=== PATIENT | female | born 1990 | race Hispanic/Latino ===

== ENCOUNTER 2018-03-23 12:31 | Emergency (ER) | payer OTHER ==
[~2018-03-23] VITALS: Ht 154.9 cm; Wt 73.0 kg
[~2018-03-23 12:31] MED LIST: ANTIVERT 25 MG25 M1 PO; LEVSIN-SL0.125 MG SL; LEVSIN0.125 M1 PO; MECLIZINE HCL25 MG PO; MOTRIN800 MG PO; TRAMADOL50 MG PO; VANCOCIN HCL250 MG PO; ZOFRAN ODT4 M1 SL; ZOFRAN4 M1 PO
--- NOTE | 2018-03-23 12:54 | ED GENERAL ADULT ---
History of Present Illness General Chief Complaint: Abdominal Pain/Flank Pain Stated Complaint: RT SIDED ABD PAIN Source: patient Exam Limitations: no limitations Vital Signs & Intake/Output Vital Signs & Intake/Output Vital Signs Date Time Temp Pulse Resp B/P B/P Pulse O2 O2 Flow FiO2 Mean Ox Delivery Rate 03/23 1623 80 16 139/80 98 Room Air Room Air 03/23 1430 89 18 169/91 98 Room Air 03/23 1320 97 Room Air 03/23 1233 96.2 106 20 142/82 96 Room Air Allergies Coded Allergies: No Known Allergies (03/23/18) Reconcile Medications Dextroamphetamine/Amphetamine (Dextroamp-Amphetamin 30 MG Tab) 30 MG TABLET 1 TAB PO BID MENTAL HEALTH (Reported) Triage Note: PT TO ED C/O RLQ PAIN X 2 HOURS. VOMITED X 3. DENIES DIRRHEA. ALSO C/O LOWER ABD PRESSURE. Triage Nurses Notes Reviewed? yes : No Patient currently breastfeeds: No HPI: This is a 28-year-old female with history of C. difficile colitis, palpitations, status post tubal ligation presenting to the emergency department with abrupt onset right lower quadrant abdominal pain which is similar in quality to previous pain which is been attributed to ovarian cysts. Patient states that the pain started abruptly when she woke up this morning, was associated with an episode of diaphoresis and nausea with vomiting. She had no fever or chills. Upon arrival to the emergency department, she states the pain is more localized to the left lower quadrant. She also feels nauseated. She denies any diarrhea. See sexually active with one male partner, does not use contraception secondary to having undergone tubal ligation. States that her last menstrual period was during last week of February and was unremarkable. She has had no vaginal bleeding or discharge since that time. Denies any dyspareunia. She denies any toxic habits apart from mild social alcohol use. She has had no recent travel, trauma, illness. She has no history of abdominal surgery. Past History Travel History Traveled to [place] past 21 day No Medical History Any Pertinent Medical History? see below for history Cardiovascular: PALPITATIONS Gastrointestinal: colitis (c.diff) Surgical History Surgical History: non-contributory Psychosocial History What is your primary language Korean Tobacco Use: Never used ETOH Use: denies use Illicit Drug Use: denies illicit drug use Family History Hx Contributory? No Review of Systems Review of Systems Constitutional: Reports: diaphoresis. Denies: chills, fever, malaise, weakness. EENTM: Reports: no symptoms. Respiratory: Reports: no symptoms. Cardiovascular: Reports: no symptoms. GI: Reports: see HPI. Genitourinary: Reports: no symptoms. Denies: discharge, dysuria, frequency, hematuria, hesitation, nocturia, pain, urgency. Musculoskeletal: Reports: no symptoms. Skin: Reports: no symptoms. Neurological/Psychological: Reports: no symptoms. Hematologic/Endocrine: Reports: no symptoms. Immunologic/Allergic: Reports: no symptoms. Physical Exam Physical Exam General Appearance: well developed/nourished, no apparent distress, awake, comfortable Comments: Well-appearing young woman, no acute distress. Abdomen soft, nondistended with normal bowel sounds. Mild tenderness palpation to left lower quadrant. No right lower quadrant tenderness. Negative Rovsing, obturator sign. Negative Lee sign. No tenderness to McBurney's point. Cardiopulmonary exam within normal limits. Neurologically intact and normal. Intact pulse, movement and sensation all extremities. No skin changes. Patient refuses pelvic/SANDB[employer] PAINT [employer]ER exam, verbalizes the risks and benefits of refusing. Core Measures ACS in differential dx? No CVA/TIA Diagnosis: No Sepsis Present: No Sepsis Focused Exam Completed? No Progress Differential Diagnoses I considered the following diagnoses in my evaluation of the patient: Ovarian cyst, ovarian torsion, lower suspicion for appendicitis in this patient. Enteritis, gastritis, colitis. Low suspicion for acute vascular pathology at this time. Doubt metabolic transient. Plan of Care: Orders Procedure Date/time Status Add-on Test (ER Only) 03/23 1407 Active HUMAN BETA HCG SCREEN 03/23 1255 Complete URINE 03/23 1233 Complete URINALYSIS 03/23 1233 Complete LIPASE 03/23 1233 Complete C-REACTIVE PROTEIN 03/23 1233 Complete COMPREHENSIVE METABOLIC PANEL 03/23 1233 Complete CBC WITHOUT DIFFERENTIAL 03/23 1233 Complete Laboratory Tests 03/23/18 1448: Urine Color YEL, Urine Clarity CLEAR, Urine pH 7.0, Ur Specific [place] 1.020, Urine Protein NEG, Urine Ketones NEG, Urine Nitrite NEG, Urine Bilirubin NEG, Urine Urobilinogen 0.2, Ur Leukocyte Esterase NEG, Ur Microscopic EXAM NOT REQUIRED, Urine Hemoglobin NEG, Urine Glucose NEG, Urine Test NEGATIVE 03/23/18 1255: Anion Gap 8, Estimated GFR > 60, BUN/Creatinine Ratio 17.1, Glucose 88, Calcium 9.5, Total Bilirubin 0.4, AST 22, ALT 16, Alkaline Phosphatase 60, C-Reactive Prot, Quant < 0.5, Total Protein 7.7, Albumin 4.4, Globulin 3.3, Albumin/ Globulin Ratio 1.3, Lipase 65, Total Beta HCG NEGATIVE, CBC w Diff NO MAN DIFF REQ, RBC 4.04 L, MCV 87.2, MCH 28.7, MCHC 32.9 L, RDW 16.1 H, MPV 9.6, Gran % 74.0, Lymphocytes % 19.2 L, Monocytes % 5.5, Eosinophils % 0.7, Basophils % 0.6 , Absolute Granulocytes 6.5, Absolute Lymphocytes 1.7, Absolute Monocytes 0.5, Absolute Eosinophils 0.1, Absolute Basophils 0 Plan for basic labs, transvaginal ultrasound, pain and nausea control, reassessment. Ultrasound consistent with hemorrhagic ovarian cyst without torsion. Patient well-appearing reassessment. She remains hemodynamically stable. She will be discharged home with return precautions and follow-up instructions with short course of p.o. Zofran for symptom control. Following initiation of Toradol and Zofran, symptoms are much improved the patient is in minimal discomfort, able to walk the department without any difficulty. No leukocytosis on lab work. No evidence of severe metabolic derangement on BMP. Initial ED EKG: none Departure Departure Time of Disposition: 1643 Disposition: HOME OR SELF CARE Condition: Stable Clinical Impression Primary Impression: Ovarian cyst Secondary Impressions: Abdominal pain, Nausea Referrals: Patient Has No Primary Care Dr (PCP/Family) Additional Instructions: Thank you for coming to [facility] today. It appears that her pain is due to a ovarian cyst which may have ruptured. Usually this is not dangerous, but sometimes does cause heavy bleeding on the inside which can cause significant problems. It is important therefore that you follow-up with your primary doctor. At this time, I recommend that you rest and take the antinausea medicine as prescribed. For pain, recommend 650 mg of Tylenol every 6 hours. Alternatively, you could also take 600 mg of ibuprofen every 6 hours as needed. If the pain gets worse or you become lightheaded or you develop any other new or worsening symptoms such as fever, vomiting, diarrhea, vaginal bleeding, please return to the emergency department immediately. Departure Forms: Customer Survey General Discharge Information Critical Care Note Critical Care Note Critical Care Time: non-applicable
[2018-03-23 13:06] LABS: ABSOLUTE BASOPHIL COUNT 0 /CUMM (0.0-0.2); ABSOLUTE EOSINOPHIL COUNT 0.1 /CUMM (0.0-0.7); ABSOLUTE GRANULOCYTE CT 6.5 /CUMM (1.4-6.5); ABSOLUTE LYMPH COUNT 1.7 /CUMM (1.2-3.4); ABSOLUTE MONOCYTE COUNT 0.5 /CUMM (0.10-0.60); BASOPHIL % 0.6 % (0.0-2.0); EOSINOPHIL % 0.7 % (0-5); HEMATOCRIT 35.2 % (37-47); MEAN CORPUSCULAR HGB 28.7 PG (27.0-31.0); MEAN CORPUSCULAR HGB CONC 32.9 G/DL (33.0-37.0); MEAN CORPUSCULAR VOLUME 87.2 FL (81.0-99.0); MEAN PLATELET VOLUME 9.6 FL (7.4-10.4); PLATELET COUNT 301 /CUMM (130-400); RBC DISTRIBUTION WIDTH 16.1 % (11.5-14.5); RED BLOOD CELL CT 4.04 /CUMM (4.20-5.40); WHITE BLOOD CELL COUNT 8.7 /CUMM (4.8-10.8)
[2018-03-23] MEDS ORDERED: DEXTROAMP-AMPHE30 MG PO (13:14)
--- NOTE | 2018-03-23 16:02 | ULTRASOUND REPORT ---
EXAMINATION: ULTRASOUND OF THE PELVIS CLINICAL INFORMATION: Right lower quadrant abdominal pain. Presumptive diagnosis of ovarian cyst. COMPARISON: CT scan of the abdomen and pelvis dated 01/09/2018. TECHNIQUE: Transabdominal and transvaginal pelvic ultrasound. A transvaginal study was performed in addition to the transabdominal study which did not yield an adequate examination of the uterus and ovaries due to superimposed distended gas-filled loops of bowel. FINDINGS: Uterus: The uterus is anteverted and normal in size and appearance, measuring 7.8 x 4.5 x 5.4 cm. The endometrial stripe thickness is normal, measuring 0.9 cm in thickness. No focal myometrial mass is seen. The cervical length is normal measuring 3.5 cm. Ovaries: The ovaries bilaterally are visualized, with the right ovary measuring 5.0 x 2.2 x 4.7 cm (27.7 mL volume) and the left ovary measuring 3.0 x 2.0 x 2.0 cm (6.3 mL volume). As seen on CT scan, there is a 2.0 x 1.7 x 1.9 cm complex hemorrhagic cyst in the right ovary. Additional mildly complicated 2.1 x 1.2 x 2.2 cm cyst and 2.5 x 1.1 x 2.3 cm simple cyst are seen in the right ovary. No suspicious right ovarian mass. With color Doppler imaging, normal arterial and venous flow to the right ovary is seen. The left ovary is unremarkable with several small follicles demonstrated. Other: No adnexal mass seen. Moderate amount of free fluid is seen in the cul-de-sac. IMPRESSION: 1. Asymmetrically enlarged right ovary with small hemorrhagic cyst or other ruptured cyst. Associated moderate amount of free fluid is seen in the cul-de-sac. 2. Two additional benign right ovarian cysts, consistent with a complicated cyst and simple follicular cyst. 3. Left ovary and uterus normal.
[2018-03-23 16:23] VITALS: BP 139/80
[2018-03-23] MEDS ORDERED: ZOFRAN ODT4 M1 SL (16:49)
== END 2018-03-23 17:15 ==
LOC: ERH 12:31
PROVIDERS: Physician Assistant Medical
DX: N83.209 Unspecified ovarian cyst, unspecified side (principal)
CPT/HCPCS: 81003; 81025; 96361; 96374; 96375; J1885; J2405